=== PATIENT | female | born 1945 | race Caucasian/White ===

== ENCOUNTER 2017-11-11 18:17 | Inpatient (IN) | payer OTHER, BC ==
[~2017-11-11] VITALS: Ht 157.5 cm; Wt 81.7 kg
[~2017-11-11 18:17] MED LIST: ACTOPLUS MET1 TABLE1 PO; ADULT LOW DOSE81 M1 PO; AMLODIPINE BESY10 MG PO; ANTIVERT25 MG PO; ATORVASTATIN CA20 MG PO; BENADRYL25 MG PO; BUTALB-APAP-CA1 EACH PO; CLONAZEPAM0.5 MG PO; DECADRON4 MG PO; ENDOCET 5-3251 EACH PO; HYDROCHLOROTHIA25 MG PO; KLONOPIN0.5 M1 PO; KLONOPIN1 MG PO; LINZESS145 MCG PO; LIPITOR20 MG PO; LOPRESSOR50 MG PO; MAXAIR AUTOHALER IH; MIRALAX17 GM PO; MIRTAZAPINE45 MG PO; OMEPRAZOLE20 MG PO; PERCOCET 5/31 TABLET PO; PIOGLITAZONE-M1 EACH PO; RANITIDINE HCL150 MG PO; REMERON45 MG PO; SERTRALINE HCL100 MG PO; TYLENOL WITH C1 EACH PO; ZOLOFT100 MG PO; [UNRECOGNIZED DRUG - OTHER] IH
[2017-11-11 21:44] LABS: INTER. NORMALIZED RATIO 2.2
[2017-11-11 21:46] LABS: BASOPHIL (%) 0.2 % (0-1); CHLORIDE 105 mEq/L (99-109); EOSINOPHIL (%) 0.3 % (0-5); HEMATOCRIT 21.6 % (36.0-46.0); IMMATURE GRANULOCYTE (%) 1.5 % (0.0-0.7); LYMPHOCYTE (%) 5.7 % (15-42); LYMPHOCYTE COUNT 0.4 K/uL (1.0-2.8); MCH 37.1 PG (29.0-34.0); MCHC 35.2 G/DL (30.0-36.0); MCV 105.4 FL (83-99); MONOCYTE (%) 0.8 % (3-12); MONOCYTE COUNT 0.1 K/uL (0-0.8); NEUTROPHIL (%) 91.5 % (45-76); NEUTROPHIL COUNT 5.9 K/uL (1.8-6.4); POTASSIUM 3.8 mEq/L (3.7-5.4); RBC DIS.WIDTH-CV 16.7 % (11.8-14.6); RBC DIS.WIDTH-SD 64.8 % (39-53); SODIUM 140 mEq/L (136-147); WHITE BLOOD COUNT 6.5 K/uL (4.1-10.2)
[2017-11-11 21:48] LABS: GLUCOSE 157 mg/dL (70-99)
[2017-11-11 21:52] LABS: CREATININE 1.2 mg/dL (0.6-1.3); GFR ESTIMATE (CALCULATED) 47 mL/min/
[2017-11-11 21:53] LABS: UREA NITROGEN (BUN) 28 mg/dL (9-23)
[2017-11-11 22:23] LABS: HEMOGLOBIN 7.6 G/DL (11.9-15.5); RED BLOOD COUNT 2.05 M/uL (3.80-5.20)
[2017-11-11 22:25] LABS: PTT ND SEC (25-37)
[2017-11-11 22:27] LABS: IMM.PLATELET FRACTION 5.2 (1-7); PLAT.SUFFICIENCY VERY DECREASED; PLATELET COUNT 16 K/uL (156-360)
[2017-11-11] MEDS ORDERED: LISINOPRIL10 MG PO (23:20)
[2017-11-11] MEDS ORDERED: ZOFRAN4 MG PO (23:21)
[2017-11-11] MEDS ORDERED: COMPAZINE10 MG PO (23:21)
[2017-11-11] MEDS ORDERED: LEVOTHYROXINE25 MCG PO (23:22)
[2017-11-11] MEDS ORDERED: OMEPRAZOLE40 M1 PO (23:22)
[2017-11-11] MEDS ORDERED: AMBIEN10 MG PO (23:22)
[2017-11-11] MEDS ORDERED: ABILIFY5 MG PO (23:23)
[2017-11-11] MEDS ORDERED: MAGNESIUM400 M1 PO ×2 (23:23)
[2017-11-11 23:58] LABS: ALBUMIN 3.8 g/dL (3.2-4.8)
[2017-11-12] VITALS (12 sets, daily range): BP systolic 111–177; BP diastolic 46–85
[2017-11-12 00:01] LABS: TOTAL PROTEIN 6.3 g/dL (6.4-8.3)
[2017-11-12 00:02] LABS: TOTAL BILIRUBIN 0.9 mg/dL (0.0-1.0)
[2017-11-12 00:03] LABS: ALKALINE PHOSPHATASE 81 IU/L (3-129)
[2017-11-12 00:06] LABS: AST (GOT) 17 IU/L (2-34); DIRECT BILIRUBIN 0.3 mg/dL (0.0-0.3)
[2017-11-12 00:07] LABS: ALT (GPT) 18 IU/L (3-49)
[2017-11-12 09:38] LABS: HEMATOCRIT 28.3 % (36.0-46.0); HEMOGLOBIN 9.8 G/DL (11.9-15.5); MCH 34.5 PG (29.0-34.0); MCHC 34.6 G/DL (30.0-36.0); MCV 99.6 FL (83-99); RBC DIS.WIDTH-CV 18.7 % (11.8-14.6); RBC DIS.WIDTH-SD 68.7 % (39-53); RED BLOOD COUNT 2.84 M/uL (3.80-5.20); WHITE BLOOD COUNT 4.5 K/uL (4.1-10.2)
[2017-11-12 09:41] LABS: CHLORIDE 106 mEq/L (99-109); POTASSIUM 3.7 mEq/L (3.7-5.4); SODIUM 142 mEq/L (136-147)
[2017-11-12 09:42] LABS: GLUCOSE 121 mg/dL (70-99)
[2017-11-12 09:46] LABS: CREATININE 1.2 mg/dL (0.6-1.3); GFR ESTIMATE (CALCULATED) 47 mL/min/
[2017-11-12 09:47] LABS: BASOPHIL (%) 0.2 % (0-1); EOSINOPHIL (%) 0.7 % (0-5); IMMATURE GRANULOCYTE (%) 1.8 % (0.0-0.7); LYMPHOCYTE (%) 7.3 % (15-42); LYMPHOCYTE COUNT 0.3 K/uL (1.0-2.8); MONOCYTE (%) 0.7 % (3-12); NEUTROPHIL (%) 89.3 % (45-76); NEUTROPHIL COUNT 4.1 K/uL (1.8-6.4); UREA NITROGEN (BUN) 26 mg/dL (9-23)
[2017-11-12 10:14] LABS: IMM.PLATELET FRACTION 2.7 (1-7); PLAT.SUFFICIENCY DECREASED
[2017-11-12 10:18] LABS: PLATELET COUNT 29 K/uL (156-360)
[2017-11-12 16:27] LABS: HEMATOCRIT 26.7 % (36.0-46.0); HEMOGLOBIN 9.4 G/DL (11.9-15.5); MCH 34.8 PG (29.0-34.0); MCHC 35.2 G/DL (30.0-36.0); MCV 98.9 FL (83-99); RBC DIS.WIDTH-CV 18.9 % (11.8-14.6); RBC DIS.WIDTH-SD 68.2 % (39-53); WHITE BLOOD COUNT 3.9 K/uL (4.1-10.2)
[2017-11-12 17:06] LABS: ANISOCYTOSIS 1+; PLAT.SUFFICIENCY VERY DECREASED; POIKILOCYTOSIS 1+
[2017-11-12 17:11] LABS: ABS NEUTROPHIL COUNT 3.4; ATYPICAL LYMPHOCYTE 0.9 %; BAND NEUTROPHILS 2.6 % (0-8.0); EOSINOPHIL ABS CT 0.1; EOSINOPHILS 1.7 % (0-5.0); IMM.PLATELET FRACTION 2.5 (1-7); LYMPHOCYTES 9.5 % (15.0-45.0); MONOCYTES 0.9 % (0-9.0); PLATELET COUNT 26 K/uL (156-360); SEG.NEUTROPHILS 84.4 % (46.0-76.0)
[2017-11-13 01:12] VITALS: BP 161/76
[2017-11-13 01:30] VITALS: BP 122/65
[2017-11-13 02:27] VITALS: BP 130/76
[2017-11-13 06:03] LABS: HEMATOCRIT 25.6 % (36.0-46.0); HEMOGLOBIN 8.9 G/DL (11.9-15.5); MCH 34.6 PG (29.0-34.0); MCHC 34.8 G/DL (30.0-36.0); MCV 99.6 FL (83-99); RBC DIS.WIDTH-CV 18.6 % (11.8-14.6); RBC DIS.WIDTH-SD 67.3 % (39-53); RED BLOOD COUNT 2.57 M/uL (3.80-5.20); WHITE BLOOD COUNT 2.1 K/uL (4.1-10.2)
[2017-11-13 06:32] LABS: ABS NEUTROPHIL COUNT 1.7; EOSINOPHIL ABS CT 0; EOSINOPHILS 0.9 % (0-5.0); HELMET CELLS 1+; IMM.PLATELET FRACTION 2.7 (1-7); LYMPHOCYTES 11.3 % (15.0-45.0); MACROCYTES 2+; MONOCYTES 0.9 % (0-9.0); PLAT.SUFFICIENCY VERY DECREASED; PLATELET COUNT 32 K/uL (156-360); SEG.NEUTROPHILS 81.7 % (46.0-76.0)
[2017-11-13 07:20] LABS: CHLORIDE 103 MEQ/L (99-109); CREATININE 1.3 MG/DL (0.6-1.3); GFR ESTIMATE (CALCULATED) 43 mL/min/; GLUCOSE 105 mg/dL (70-99); POTASSIUM 3.3 MEQ/L (3.7-5.4); SODIUM 144 MEQ/L (136-147); UREA NITROGEN (BUN) 26 mg/dL (9-23)
[2017-11-13 07:21] LABS: MAGNESIUM 0.9 mg/dl (1.3-2.7)
[2017-11-13 07:35] VITALS: BP 132/69
[2017-11-13] MEDS ORDERED: MAGNESIUM400 M1 PO (08:35)
[2017-11-13] MEDS ORDERED: PANTOPRAZOLE SO40 MG PO (08:35)
[2017-11-13 11:10] VITALS: BP 128/72
[2017-11-13 11:11] VITALS: BP 153/68
== END 2017-11-13 14:17 | disposition home or self-care (01) | DRG 813 ==
LOC: EME 18:17 → ENRESERV 23:43 → CANRESERV 23:57 → ENRESERV 23:57 → EDOF 11-12 00:07 → ENRESERV 11-12 00:52 → 5EAST 11-12 18:15
PROVIDERS: Family Medicine; Nurse Practitioner Family
DX: D69.6 Thrombocytopenia, unspecified (principal); D64.81 Anemia due to antineoplastic chemotherapy; T45.1X5A Adverse effect of antineoplastic and immunosuppressive drugs, initial encounter; R04.0 Epistaxis; C56.9 Malignant neoplasm of unspecified ovary; E83.42 Hypomagnesemia; R00.2 Palpitations; E03.9 Hypothyroidism, unspecified; E11.9 Type 2 diabetes mellitus without complications; I10 Essential (primary) hypertension; J45.909 Unspecified asthma, uncomplicated; K21.9 Gastro-esophageal reflux disease without esophagitis; E78.1 Pure hyperglyceridemia; E78.5 Hyperlipidemia, unspecified; G25.81 Restless legs syndrome; F32.9 Major depressive disorder, single episode, unspecified; Z79.82 Long term (current) use of aspirin; Z87.891 Personal history of nicotine dependence; Z90.710 Acquired absence of both cervix and uterus; Z91.19 Patient's noncompliance with other medical treatment and regimen
CPT/HCPCS: 80048; 80076; 83735; 85025; 85025 91; 85027; 85610; 85730; 86850; 86900; 86901; 86920; 99281; 99285; P9016; P9035

== ENCOUNTER → 2018-02-28 | Outpatient (CLI) | payer OTHER, BC ==
[~2018-02-28] MED LIST changes: +ABILIFY5 MG PO; +AMBIEN10 MG PO; +CITRACAL + D C1 EACH PO; +COMPAZINE10 MG PO; +LEVOTHYROXINE25 MCG PO; +LISINOPRIL10 MG PO; +MAGNESIUM400 M1 PO; +OMEPRAZOLE40 M1 PO; +PANTOPRAZOLE SO40 MG PO; +ZANTAC75 M1 PO; +ZOFRAN4 MG PO
== END | disposition home or self-care (01) ==
LOC: NUC 14:00
DX: R06.02 Shortness of breath (principal); R07.89 Other chest pain
CPT/HCPCS: 78582; A9540; A9567

== ENCOUNTER → 2018-06-01 | Outpatient (CLI) | payer OTHER, BC | END | disposition home or self-care (01) | LOC: EKG 08:30 | DX: I05.1 Rheumatic mitral insufficiency (principal); I07.1 Rheumatic tricuspid insufficiency | CPT/HCPCS: 93306 ==